=== PATIENT | female | born 1970 | race Caucasian/White ===

== ENCOUNTER 2025-06-22 23:48 | Observation (INO) | payer OTHER ==
[~2025-06-22] VITALS: Ht 172.7 cm; Wt 81.8 kg
[2025-06-23] MEDS ORDERED: ISOVUE-370 76% 100 ML VIAL As Ordered ONE (00:15)
[2025-06-23 00:52] LABS: BASO # 0.0 10^3/uL (0.0-0.2); BASO % 0.3 % (0.0-1.0); EOS # 0.0 10^3/uL (0.0-0.5); EOS % 0.5 % (0.0-3.0); LYMPH # 2.2 10^3/uL (1.5-5.0); LYMPH % 27.9 % (24.0-44.0); MONO # 0.5 10^3/uL (0.0-0.8); MONO % 6.1 % (2.0-8.0); NEUTROPHILS # 5.1 10^3/uL (1.5-8.5); NEUTROPHILS % 64.9 % (36.0-66.0); PLATELET COUNT, AUTOMATED 295 10^3/uL (150-450)
[2025-06-23] MEDS: ASPIRIN 81 MG CHEWABLE TABLET PO ONE (00:59)
[2025-06-23] MEDS: MECLIZINE 25 MG TABLET PO ONE (00:59)
[2025-06-23] MEDS: SCOPOLAMINE 1MG TRANSDERMAL PATCH TOP ONE (01:00)
[2025-06-23 01:03] LABS: CK-MB VALUE MASS 3.8 NG/ML (<3.6)
[2025-06-23 01:04] LABS: CALCIUM LEVEL 9.9 MG/DL (8.5-10.1); CARBON DIOXIDE LEVEL 25 MMOL/L (20-31); CHLORIDE LEVEL 108 MMOL/L (98-107); CREATININE FOR GFR 0.73 MG/DL (0.55-1.30); GLOMERULAR FILTRATION RATE > 90.0 (>51); POTASSIUM SERUM 4.0 MMOL/L (3.5-5.1); SODIUM LEVEL 144 MMOL/L (136-145)
[2025-06-23 01:10] LABS: CPK CREATINE PHOSPHOKINASE 145 U/L (34-145); MB/CK RELATIVE INDEX 2.62 (< OR =4)
[2025-06-23 01:16] LABS: INR 0.94
[2025-06-23] MEDS ORDERED: ACETAMINOPHEN 325 MG TAB PO PRN (04:35)
[2025-06-23] MEDS ORDERED: MECLIZINE 25 MG TABLET PO PRN (04:50)
[2025-06-23] MEDS ORDERED: IPRATROPIUM 0.5 MG/ALBUTEROL 2.5 MG INH SOL UD 3 ML NEB PRN (05:30)
[2025-06-23 06:08] VITALS: BP 128/69; TEMP 97.2; O2SAT 97
[2025-06-23 06:09] LABS: PLATELET COUNT, AUTOMATED 284 10^3/uL (150-450)
[2025-06-23 06:19] LABS: ESTIMATED AVERAGE GLUCOSE 114.0 MG/DL (60-110)
[2025-06-23 06:30] LABS: ALT/SGPT 56 U/L (7.0-40); AST/SGOT 30 U/L (<34); CALCIUM LEVEL 9.6 MG/DL (8.5-10.1); CARBON DIOXIDE LEVEL 26 MMOL/L (20-31); CHLORIDE LEVEL 110 MMOL/L (98-107); CHOLESTEROL LEVEL 281 MG/DL (<200); CHOLESTEROL RISK RATIO 8.78 (<5); CREATININE FOR GFR 0.70 MG/DL (0.55-1.30); GLOMERULAR FILTRATION RATE > 90.0 (>51); LDL CHOLESTEROL 229.4 MG/DL (<100); MAGNESIUM LEVEL 2.0 MG/DL (1.8-2.4); NON-HDL-C 249.0 MG/DL; POTASSIUM SERUM 4.4 MMOL/L (3.5-5.1); SODIUM LEVEL 144 MMOL/L (136-145); TRIGLYCERIDES LEVEL 98 MG/DL (<150)
[2025-06-23 06:32] LABS: VITAMIN B12 LEVEL 421 PG/ML (211-911)
[2025-06-23] MEDS ORDERED: CLON1TAB8 PO ×2 (08:55)
[2025-06-23] MEDS ORDERED: HOME MED LIST COMPLETE! XX SCH (08:55)
[2025-06-23] MEDS ORDERED: ROZE8TAB16 PO (08:55)
[2025-06-23] MEDS ORDERED: CLOP75TA2 PO (08:55)
[2025-06-23] MEDS ORDERED: VENTAER INH (08:55)
[2025-06-23] MEDS ORDERED: ATOR1TAB19 PO (08:55)
[2025-06-23] MEDS ORDERED: GABA-1172 PO (08:55)
[2025-06-23] MEDS ORDERED: AMLO1TAB24 PO (08:55)
[2025-06-23] MEDS ORDERED: LOSA100T46 PO (08:55)
[2025-06-23] MEDS ORDERED: MECL-86 PO ×2 (08:55→11:12)
[2025-06-23] MEDS ORDERED: PANT40TA29 PO (08:55)
[2025-06-23] MEDS ORDERED: ASPI81TA26 PO (08:55)
[2025-06-23] MEDS ORDERED: PRAZ1CAP PO (08:55)
[2025-06-23] MEDS: ASPIRIN 81 MG CHEWABLE TABLET PO SCH (08:56)
[2025-06-23 08:57] VITALS: BP 132/83; TEMP 97; O2SAT 99
[2025-06-23] MEDS: ENOXAPARIN 40 MG/0.4 ML SYRINGE (J1650 PER 10MG) SC SCH (10:00)
[2025-06-23] MEDS ORDERED: ATOR1TAB21 PO (11:12)
[2025-06-23] MEDS ORDERED: TRAN1DIS4 TOP (11:12)
[2025-06-23] MEDS: ATORVASTATIN 20 MG TAB PO SCH (11:17)
== END 2025-06-23 11:50 | disposition home or self-care (01) ==
LOC: M ED 23:48 → M ED INP 23:49 → M MS4PR 06-23 05:59
PROVIDERS: ADMIT Student in an Organized Health Care Education/Training Program; ATTEND Student in an Organized Health Care Education/Training Program
DX: G45.3 Amaurosis fugax (principal); R42 Dizziness and giddiness; Z86.73 Personal history of transient ischemic attack (TIA), and cerebral infarction without residual deficits; I10 Essential (primary) hypertension; E78.5 Hyperlipidemia, unspecified; J44.9 Chronic obstructive pulmonary disease, unspecified; F41.9 Anxiety disorder, unspecified; F32.A Depression, unspecified; F43.10 Post-traumatic stress disorder, unspecified; Z79.82 Long term (current) use of aspirin; Z79.899 Other long term (current) drug therapy
CPT/HCPCS: 36415; 70450; 70496; 70498; 71045; 80047; 80048; 80053; 80061; 82550; 82553; 82607; 82746; 83036; 83735; 84443; 84484; 85025; 85027; 85610; 85730; 93041; 93306; 93970; 94760; 96372; 97161; 97165; 97535; 99285; J1650; Q9967

== ENCOUNTER 2025-06-29 11:42 | Emergency (ER) | payer OTHER ==
[~2025-06-29] VITALS: Ht 172.7 cm; Wt 79.5 kg
[~2025-06-29 11:42] MED LIST: AMLO1TAB24 PO; ASPI81TA26 PO; ATOR1TAB19 PO; ATOR1TAB21 PO; CLON1TAB8 PO; CLOP75TA2 PO; GABA-1172 PO; LOSA100T46 PO; MECL-86 PO; PANT40TA29 PO; PRAZ1CAP PO; ROZE8TAB16 PO; TRAN1DIS4 TOP; VENTAER INH
[2025-06-29 12:22] LABS: BASO # 0.0 10^3/uL (0.0-0.2); BASO % 0.4 % (0.0-1.0); EOS # 0.0 10^3/uL (0.0-0.5); EOS % 0.5 % (0.0-3.0); LYMPH # 1.6 10^3/uL (1.5-5.0); LYMPH % 20.7 % (24.0-44.0); MONO # 0.4 10^3/uL (0.0-0.8); MONO % 4.9 % (2.0-8.0); NEUTROPHILS # 5.7 10^3/uL (1.5-8.5); NEUTROPHILS % 73.4 % (36.0-66.0); PLATELET COUNT, AUTOMATED 304 10^3/uL (150-450)
[2025-06-29] MEDS: NS (Normal Saline) 0.9% 1,000 ML IV ONE (13:44)
[2025-06-29] MEDS: ONDANSETRON 4MG 2ML VIAL IV ONE (13:44)
[2025-06-29 14:03] LABS: BASO # 0.1 10^3/uL (0.0-0.2); BASO % 0.6 % (0.0-1.0); EOS # 0.0 10^3/uL (0.0-0.5); EOS % 0.1 % (0.0-3.0); LYMPH # 1.7 10^3/uL (1.5-5.0); LYMPH % 19.0 % (24.0-44.0); MONO # 0.3 10^3/uL (0.0-0.8); MONO % 3.8 % (2.0-8.0); NEUTROPHILS # 6.8 10^3/uL (1.5-8.5); NEUTROPHILS % 76.2 % (36.0-66.0); PLATELET COUNT, AUTOMATED 268 10^3/uL (150-450)
[2025-06-29 14:16] LABS: INR 0.96
[2025-06-29 14:26] LABS: CK-MB VALUE MASS < 1.0 NG/ML (<3.6)
[2025-06-29 14:28] LABS: ALT/SGPT 68 U/L (7.0-40); AST/SGOT 36 U/L (<34); CALCIUM LEVEL 9.9 MG/DL (8.5-10.1); CARBON DIOXIDE LEVEL 22 MMOL/L (20-31); CHLORIDE LEVEL 111 MMOL/L (98-107); CREATININE FOR GFR 0.68 MG/DL (0.55-1.30); GLOMERULAR FILTRATION RATE > 90.0 (>51); POTASSIUM SERUM 4.3 MMOL/L (3.5-5.1); SODIUM LEVEL 143 MMOL/L (136-145)
[2025-06-29 14:30] LABS: FREE T4 1.51 NG/DL (0.89-1.76)
[2025-06-29 14:37] LABS: CPK CREATINE PHOSPHOKINASE 42 U/L (34-145)
[2025-06-29] MEDS: MECLIZINE 25 MG TABLET PO ONE (14:48)
[2025-06-29 15:00] VITALS: BP 102/63; O2SAT 100
[2025-06-29 15:22] LABS: CK-MB VALUE MASS < 1.0 NG/ML (<3.6); CPK CREATINE PHOSPHOKINASE 57 U/L (34-145)
[2025-06-29 15:31] VITALS: O2SAT 100
[2025-06-29] MEDS ORDERED: ONDA-282 PO (15:41)
[2025-06-29 15:53] VITALS: TEMP 97
== END 2025-06-29 16:02 | disposition home or self-care (01) ==
LOC: M ED 11:42 → EDBD 11:42 → M ED 16:02
DX: I95.1 Orthostatic hypotension (principal); Z86.69 Personal history of other diseases of the nervous system and sense organs; I10 Essential (primary) hypertension; J44.9 Chronic obstructive pulmonary disease, unspecified; Z86.73 Personal history of transient ischemic attack (TIA), and cerebral infarction without residual deficits; F41.9 Anxiety disorder, unspecified; F32.A Depression, unspecified; F43.10 Post-traumatic stress disorder, unspecified
CPT/HCPCS: 36415; 70450; 71045; 80047; 80048; 80076; 82550; 82553; 84439; 84443; 84484; 85025; 85610; 85730; 93005; 93041; 94760; 96361; 96374; 99285; J2405

== ENCOUNTER 2025-07-03 11:40 | Emergency (ER) | payer OTHER ==
[~2025-07-03 11:40] MED LIST changes: -HOLTER MONITOR XX; -HYDR-3363 PO
[2025-07-03 12:10] LABS: BASO # 0.0 10^3/uL (0.0-0.2); BASO % 0.3 % (0.0-1.0); EOS # 0.0 10^3/uL (0.0-0.5); EOS % 0.1 % (0.0-3.0); LYMPH # 1.3 10^3/uL (1.5-5.0); LYMPH % 14.0 % (24.0-44.0); MONO # 0.4 10^3/uL (0.0-0.8); MONO % 3.7 % (2.0-8.0); NEUTROPHILS # 7.7 10^3/uL (1.5-8.5); NEUTROPHILS % 81.6 % (36.0-66.0); PLATELET COUNT, AUTOMATED 316 10^3/uL (150-450)
[2025-07-03 12:21] LABS: INR 0.92
[2025-07-03 12:35] LABS: CK-MB VALUE MASS < 1.0 NG/ML (<3.6)
[2025-07-03 12:37] LABS: ALT/SGPT 93 U/L (7.0-40); AST/SGOT 42 U/L (<34); CALCIUM LEVEL 10.3 MG/DL (8.5-10.1); CARBON DIOXIDE LEVEL 21 MMOL/L (20-31); CHLORIDE LEVEL 109 MMOL/L (98-107); CREATININE FOR GFR 0.73 MG/DL (0.55-1.30); GLOMERULAR FILTRATION RATE > 90.0 (>51); MAGNESIUM LEVEL 2.1 MG/DL (1.8-2.4); POTASSIUM SERUM 4.3 MMOL/L (3.5-5.1); SODIUM LEVEL 145 MMOL/L (136-145)
[2025-07-03 12:38] LABS: FREE T4 1.57 NG/DL (0.89-1.76)
[2025-07-03 12:41] LABS: CPK CREATINE PHOSPHOKINASE 40 U/L (34-145)
[2025-07-03 12:45] LABS: AMPHETAMINES LEVEL URINE NEGATIVE (NEGATIVE); BARBITURATES URINE NEGATIVE (NEGATIVE); BENZODIAZEPINES URINE NEGATIVE (NEGATIVE); COCAINE METABOLITE URINE NEGATIVE (NEGATIVE); METHADONE URINE NEGATIVE (NEGATIVE); OPIATES URINE NEGATIVE (NEGATIVE); PHENCYCLIDINE URINE NEGATIVE (NEGATIVE)
[2025-07-03 12:52] LABS: CANNABINOIDS URINE POSITIVE (NEGATIVE)
[2025-07-03 13:45] VITALS: BP 108/72
[2025-07-03 13:55] VITALS: O2SAT 96
[2025-07-03] MEDS ORDERED: HOLTER MONITOR XX (14:04)
[2025-07-03 14:11] VITALS: TEMP 97.5
[2025-07-03] MEDS ORDERED: HYDR-3363 PO (18:28)
== END 2025-07-03 14:17 | disposition home or self-care (01) ==
LOC: EDBD 11:40 → M ED 11:40
DX: R00.2 Palpitations (principal); F41.9 Anxiety disorder, unspecified; I10 Essential (primary) hypertension; E78.5 Hyperlipidemia, unspecified; J44.9 Chronic obstructive pulmonary disease, unspecified; Z86.73 Personal history of transient ischemic attack (TIA), and cerebral infarction without residual deficits; F17.200 Nicotine dependence, unspecified, uncomplicated; Z79.82 Long term (current) use of aspirin; Z79.899 Other long term (current) drug therapy

== ENCOUNTER 2025-07-03 15:48 | Emergency (ER) | payer OTHER ==
[~2025-07-03] VITALS: Ht 172.7 cm; Wt 79.5 kg
[~2025-07-03 15:48] MED LIST changes: +HOLTER MONITOR XX
[2025-07-03] MEDS ORDERED: HYDR-3363 PO (18:28)
[2025-07-03 18:32] VITALS: BP 164/88; TEMP 97.1; O2SAT 98
== END 2025-07-03 18:41 | disposition home or self-care (01) ==
LOC: M ED 15:48
DX: R00.2 Palpitations (principal); I10 Essential (primary) hypertension; Z86.73 Personal history of transient ischemic attack (TIA), and cerebral infarction without residual deficits; Z79.899 Other long term (current) drug therapy

== ENCOUNTER → 2025-07-03 | Outpatient (CLI) | payer OTHER ==
[~2025-07-03] MED LIST changes: +HOLTER MONITOR XX; +HYDR-3363 PO; +ONDA-282 PO
== END ==
LOC: M EKG 14:23
PROVIDERS: ATTEND Emergency Medicine
DX: R00.2 Palpitations (principal); Z53.9 Procedure and treatment not carried out, unspecified reason